=== PATIENT | female | born 1970 | race Caucasian/White ===

== ENCOUNTER → 2016-05-03 | Outpatient (CLI) | payer BC ==
[~2016-05-03] MED LIST: ABILIFY 10MG TA10 MG PO; ALLEGRA180 MG PO; LEXAPRO10 MG PO; LEXAPRO20 MG PO; NASAREL SPRAY25 ML NS; NORCO 325 MG-51 TAB PO; NORCO 325 MG-7.1 TAB PO
== END ==
LOC: BHSO 16:30
DX: F41.1 Generalized anxiety disorder (principal)

== ENCOUNTER → 2016-12-08 | Outpatient (CLI) | payer BC | LOC: BHSO 16:19 | DX: F33.1 Major depressive disorder, recurrent, moderate (principal) ==